=== PATIENT | male | born 1955 | race Caucasian/White ===

== ENCOUNTER 2020-12-05 17:26 | Emergency (ER) | payer SELFPAY ==
--- OUTSIDE RECORDS SUMMARY | 2020-12-05 17:28 | XMS REPORT | Continuity of Care Document ---
:1955 Author Organization [facility] t Address [address] [place] [address] Care Team Providers Name Role Phone Unavailable Unavailable Unavailable Problems This patient has no known problems. Allergies, Adverse Reactions, Alerts This patient has no known allergies or adverse reactions. Medications This patient has no known medications. Procedures This patient has no known procedures. Encounters Start End Encounter Admission Attending Care Care Encounter Source Date/Time Date/Time Type Type Clinicians Facility Department ID 2020-06-11 2020-06-11 Outpatient [facility] [id number] [facility] 00:00:00 00:00:00 [facility] Results This patient has no known results.
--- NOTE | 2020-12-05 20:20 | ER ---
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 States he thinks he tore his Achilles tendon,. PMS intact. Coronavirus screen: Client denies travel out of the [place] in the last 14 days. At this time, the client does not indicate any symptoms associated with coronavirus-19. Ebola Screen: Patient denies travel to an Ebola-affected area in the 21 days before illness onset. Initial Sepsis Screen: Does the patient meet any 2 criteria? No. Patient's initial sepsis screen is negative. Does the patient have a suspected source of infection? Yes: Bone or joint infection. Risk Assessment: Do you want to hurt yourself or someone else? Patient reports no desire to harm self or others. Onset of symptoms was December 05, 2020. 17:58 Method Of Arrival: Ambulatory ll1 17:58 Acuity: FLAVIA 3 ll1 Historical: - Allergies: 17:58 PENICILLINS; ll1 - PMHx: 17:58 None; ll1 - PSHx: 17:58 Tonsillectomy; ll1 - Immunization history:: Client reports receiving the 2nd dose of the Covid vaccine, Flu vaccine is up to date. - Social history:: Smoking status: Patient reports the use of cigarette tobacco products, denies chronic smoking, but will smoke occasionally. Vital Signs: 17:58 BP 139 / 89; Pulse 80; Resp 17; Temp 98.3; Pulse Ox 99% ; Weight 92.99 kg; Height 6 ft. ll1 0 in. (182.88 cm); Pain 2/10; 17:58 Body Mass Index 27.80 (92.99 kg, 182.88 cm) ll1 ED Course: 17:33 Patient arrived in ED. am2 17:57 Arm band placed on. ll1 18:00 Triage completed. ll1 19:58 Mor Duong PA is PHCP. [facility] 19:58 Lex Ackerman MD is Attending Physician. chino Administered Medications: No medications were administered Outcome: 20:19 Eloped from waiting room, before seeing physician iw 20:19 Patient left the ED. iw Signatures: Mor Duong PA PA jmm Williams, Irene, RN RN iw Tatiana Delgado am2 Vanessa Krause RN RN ll1
[2020-12-05 20:58] VITALS: BP 139/89; TEMP 98.3; O2SAT 99
== END 2020-12-05 20:19 | disposition left against medical advice (07) ==
LOC: ER 17:26
DX: Z02.9 Encounter for administrative examinations, unspecified (principal)
CPT/HCPCS: 99281

== ENCOUNTER 2022-02-08 05:53 | Emergency (ER) | payer OTHER ==
--- OUTSIDE RECORDS SUMMARY | 2022-02-08 05:57 | XMS REPORT | Continuity of Care Document ---
:1955 Author Organization [facility] t Address [address] [place] [address] Care Team Providers Name Role Phone Pcp, Does Not Have A Primary Care Physician Jared Attending Clinician Unavailable MYJESSESEYONLINE Attending Clinician Unavailable Jerrell BEST W Attending Clinician YANNA IRIZARRY Attending Clinician Unavailable Jorje LAL Attending Clinician Unavailable LAB47 Attending Clinician Unavailable Yanna Irizarry MD Attending Clinician Jasmin RN, T Attending Clinician Unavailable Only, Db Test Attending Clinician Unavailable Tasneem MARTELL Attending Clinician TASNEEM Attending Clinician Unavailable Doctor Unassigned, Name Attending Clinician Unavailable DANIELLE MCDERMOTT Attending Clinician Unavailable Payers Payer Name Policy Type Policy Number Effective Date Expiration Date Uli BAILEY O 7 [id number] 2020 00:00:00 Problems Condition Condition Condition Status Onset Resolution Last Treating Co mments Source Name Details Category Date Date Treatment Clinician Date Stage 3a Stage 3a Disease Active Kelse y chronic chronic 3-24 Seybold kidney kidney 00:00: disease disease 00 Hypertensi Hypertensi Disease Active K elsey ve chronic ve chronic 3-24 Se ybold kidney kidney 00:00: disease disease 00 Hyperchole Hyperchole Disease Active Kaden daren sterolemia sterolemia 3-24 Se ybold 00:00: 00 Essential Essential Disease Active Jesse biswas hypertensi hypertensi 1-08 Se ybold on on 00:00: 00 Benign Benign Disease Active Heather prostatic prostatic 1-08 Seyb old hyperplasi hyperplasi 00:00: a a 00 Allergies, Adverse Reactions, Alerts Allergy Allergy Status Severity Reaction(s) Onset Inactive Treating Comm ents Source Name Type Date Date Clinician Penicill Propensi Active Heather ins ty to 07-27 Seybold adverse 00:00: reaction 00 s NO KNOWN Drug Active [facility] ALLERGIE Class ity of [facility] Social History Social Habit Start Date Stop Date Quantity Comments Source History SDOH Heather vasquez Alcohol Std Drinks History SDOH Heather vasquez Alcohol Binge Exposure to Not sure [facility]-CoV2 [facility] (event) [place] Alcohol intake 2021-11-25 2021-11-25 .43 /d Heather nguyen 00:00:00 00:00:00 Alcohol Comment 2020-12-07 2020-12-07 social Heather silverioold 00:00:00 00:00:00 Tobacco use and 2020-08-24 2020-08-24 Smokeless tobacco Abdon harper Seybbernardo exposure 00:00:00 00:00:00 non-user History SDOH 2020-08-24 2020-08-24 5 Heather vasquez Alcohol Frequency 00:00:00 00:00:00 History of 1979-07-20 Smoker Heather James tobacco use 00:00:00 Sex Ass[birth year] [facility] y of 00:00:00 00:00:00 [facility] Smoking Status Start Date Stop Date Source Unknown if ever smoked [facility] Ex-smoker 2020-08-24 00:00:00 2020-08-24 00:00:00 Heather narayan Medications Ordered Filled Start Stop Current Ordering Indication Dosage Frequency Signature Comments Components Source Medication Medication Date Date Medication? Clinician (SIG) Name Name Aspirin 81 Yes 81mg Take 81 mg K elsey MG oral 5-09 by mouth Seybold Chewable 15:16: daily Tablet 08 Tamsulosin 0 Yes .4mg Take 1 Kelse y HCl 0.4 MG 5-09 capsule Seybol d oral 00:00: (0.4 mg Capsule 00 total) by mouth in the morning and 1 capsule (0.4 mg total) in the evening. Tamsulosin 202- No [id number] .4mg Take 1 Heather HCl 0.4 MG 4-22 05-09 capsule Seybo ld oral 00:00: 00:00 (0.4 mg Capsule 00 :00 total) by mouth in the morning and 1 capsule (0.4 mg total) in the evening. Atorvastati Yes [id number] 10mg Take 1 Heather n Calcium 3-25 tablet (10 Seyb old (Lipitor) 00:00: mg total) 10 MG oral 00 by mouth Tablet daily Aspirin 81 0 Yes 81mg Take 81 mg K elsey MG oral 3-24 by mouth Seybold Chewable 15:27: daily Tablet 49 Zoster Vac 0 Yes [id number] One dose Heather Recomb 3-24 now. Seybold Adjuvanted 00:00: Second 50 00 dose given MCG/0.5ML two to six intramuscul months ar Recon AFTER Susp first dose. Zoster Vac 0 Yes [id number] One dose Heather Recomb 3-24 now. Seybold Adjuvanted 00:00: Second 50 00 dose given MCG/0.5ML two to six intramuscul months ar Recon AFTER Susp first dose. Tamsulosin Yes [id number] .4mg Take 1 Heather HCl 0.4 MG 3-17 capsule Seybol d oral 00:00: (0.4 mg Capsule 00 total) by mouth in the morning and 1 capsule (0.4 mg total) in the evening. Aspirin 81 0 Yes 81mg Take 81 mg K elsey MG oral 1-21 by mouth Seybold Chewable 15:41: daily Tablet 51 Losartan 2021-0 Yes [id number] 25mg Take 1 Jesse sey Potassium 1-21 tablet (25 Seyb old 25 MG oral 00:00: mg total) Tablet 00 by mouth daily Losartan 0 Yes [id number] 25mg Take 1 Jesse sey Potassium 1-21 tablet (25 Seyb old 25 MG oral 00:00: mg total) Tablet 00 by mouth daily Losartan Yes [id number] 25mg Take 1 Jesse sey Potassium 1-21 tablet (25 Seyb old 25 MG oral 00:00: mg total) Tablet 00 by mouth daily Losartan 2020-07- No [id number] TAKE 1 Ke lsey Potassium 2-27 01-21 TABLET BY Seyb old 25 MG oral 00:00: 00:00 MOUTH Tablet 00 :00 EVERY DAY Tamsulosin Yes [id number] .4mg Take 1 Heather HCl 0.4 MG 3-15 capsule Seybol d oral 00:00: (0.4 mg Capsule 00 total) by mouth 2 times daily Immunizations Ordered Immunization Filled Immunization Date Status Commen ts Source Name Name Pneumococcal 2021-10-10 Completed Heather Tenorio ld Vaccine, Conjugate 00:00:00 13 Pneumococcal 2021-10-10 Completed Heather Tenorio ld Vaccine, Conjugate 00:00:00 13 Covid-19 Vaccine 2021-06-25 Completed Heather narayan (Moderna), Mrna-lnp, 00:00:00 Juan Protein, Pf, 100 Mcg/0.5ml,IM Covid-19 Vaccine 2021-06-25 Completed Heather narayan Moderna (Spikevax), 00:00:00 Mrna-lnp, Juan Protein, Pf Covid-19 Vaccine 2021-06-25 Completed Heather narayan Moderna (Spikevax), 00:00:00 Mrna-lnp, Juan Protein, Pf Vital Signs Vital Name Observation Time Observation Value Comments Source Systolic blood pressure 2021-11-25 20:14:00 116 mm[Hg] Heather Seneida Diastolic blood 2021-11-25 20:14:00 60 mm[Hg] Leroy fatou Balbirbernardo pressure Heart rate 2021-11-25 20:14:00 97 /min Heather narayan Body temperature 2021-11-25 20:14:00 36.83 Renate Minnie James Respiratory rate 2021-11-25 20:14:00 18 /min Minnie chaudhry Seneida Body height 2021-11-25 20:14:00 182.9 cm Heather Uli sylvain Body weight 2021-11-25 20:14:00 97.523 kg Heather Mcnally eybold BMI 2021-11-25 20:14:00 29.16 kg/m2 Heather S eybold Oxygen saturation in 2021-11-25 20:14:00 96 /min Heather James Arterial blood by Pulse oximetry Systolic blood pressure 2021-10-10 20:23:00 128 mm[Hg] Heather Seybold Diastolic blood 2021-10-10 20:23:00 82 mm[Hg] Kelse y Seybold pressure Heart rate 2021-10-10 20:23:00 76 /min Heather S eybold Body temperature 2021-10-10 20:23:00 36.11 Renate Minnie ey Seybold Respiratory rate 2021-10-10 20:23:00 18 /min Minnie ey Seybold Body height 2021-10-10 20:23:00 182.9 cm Heather S eybold Body weight 2021-10-10 20:23:00 98.793 kg Heather S eybold BMI 2021-10-10 20:23:00 29.54 kg/m2 Heather S eybold Systolic blood pressure 2021-08-09 21:33:00 120 mm[Hg] Heather Seybold Diastolic blood 2021-08-09 21:33:00 70 mm[Hg] Kelse y Seybold pressure Heart rate 2021-08-09 21:33:00 104 /min Heather S eybold Respiratory rate 2021-08-09 21:33:00 17 /min Minnie chaudhry Seybold Body height 2021-08-09 21:33:00 182.9 cm Heather S eybold Body weight 2021-08-09 21:33:00 101.878 kg Heather S eybold BMI 2021-08-09 21:33:00 30.46 kg/m2 Heather Mcnally eybold Oxygen saturation in 2021-08-09 21:33:00 96 /min Heather Zabalaybold Arterial blood by Pulse oximetry Procedures Procedure Date / Time Performed Performing Clinician [facility] ASSIGNMENT OF BENEFITS 2021-09-08 15:26:16 Doctor Unassigned, No [facility] Encounters Start End Encounter Admission Attending Care Care Encounter Source Date/Time Date/Time Type Type Clinicians Facility Department ID 2021-08-[address] [facility] [id number] Common 12:08:33 [facility] [address] [facility] 2021-08-[address] [facility] [id number] Common 12:07:49 [facility] [address] [facility] 2022-02-04 2022-02-04 Outpatient BEVMANPREETMarco Antonio TRAORE [id number] Heather 00:00:00 00:00:00 MD HENRIK Seybol d 2021-11-25 2021-11-25 Office MATEO Lal [id number] Heather 15:30:00 15:45:00 Visit Alessandra CARDONA [id number] Uli narayan [id number] 2021-11-08 2021-11-08 Outpatient HEATHER IRIZARRY [id number] Heather 00:00:00 00:00:00 FIRAS Seybol d 2021-11-05 2021-11-05 Outpatient HEATHER LAL [id number] Heather 00:00:00 00:00:00 ALESSANDRA Seybol d 2021-11-03 2021-11-03 Outpatient HEATHER LAL [id number] Heather 00:00:00 00:00:00 ALESSANDRA Mcgregorol penelope 2021-10-11 2021-10-11 Outpatient HEATHER IRIZARRY [id number] Heather 00:00:00 00:00:00 FIRTATE Seybol d 2021-10-10 2021-10-10 Outpatient LAB47 HEATHER TRAORE [id number] Heather 16:45:00 16:45:00 Seybol d 2021-10-10 2021-10-10 Office SIMEON Irizarry [id number] Heather 15:45:00 16:30:00 Visit Jaimie Raines [id number] Seybold [id number] 2021-09-27 2021-09-27 Outpatient HEATHER LAL [id number] Heather 00:00:00 00:00:00 ALESSANDRA negrete 2021-09-22 2021-09-22 Outpatient HEATHER LAL [id number] Heather 00:00:00 00:00:00 ALESSANDRA Mcgregorol penelope 2021-09-09 2021-09-09 Letter MARTIN Castellanos [id number] Univers 00:00:00 00:00:00 (Out) Naomy T ULICES [id number] it y of HOSPITAL [id number] Fawad as [id number] [facility] 019 [place] 2021-09-08 2021-09-08 Laboratory Only, Ang Db Test [facility] 1.2.8 40.114 [id number] Univers 09:45:00 10:00:00 Only Tasneem [facility] [id number] ity of [place] 4.2.7.2.686 Fawad as SASCHA?BLEA [id number] [address] MEDICAL OFFICE [facility]ILDING 2021-09-08 2021-09-[address] [facility] [id number] Univers 09:45:00 09:45:00 NATASHA ity of [facility] 2021-09-08 2021-09-08 Letter Doctor SALAZAR [id number] Univers 00:00:00 00:00:00 (Out) Unassigned, ULICES [id number] ity of [place] [facility] 4.2.7.2.686 Fawad as [id number] [facility] 044 [place] 2021-09-08 2021-09-08 Orders Doctor SALAZAR [id number] Univers 00:00:00 00:00:00 Only Unassigned, ULICES 350.1.13.10 ity of [place] [facility] 4.2.7.2.686 Fawad as [id number] [facility] 009 [place] 2021-08-31 2021-08-31 Outpatient LAB47 HEATHER TRAORE [id number] Heather 09:15:00 09:15:00 Seybol penelope 2021-08-12 2021-08-12 Outpatient HEATHER IRIZARRY [id number] Heather 00:00:00 00:00:00 FIRAS Seybol d 2021-08-10 2021-08-10 Outpatient LAB47 HEATHER TRAORE [id number] Heather 08:05:00 08:05:00 Seybol d 2021-08-09 2021-08-09 Office KtSIMEON ellis [id number] Heather 16:15:00 16:30:00 Visit Firas Yanna [id number] Seybold [id number] [id number] 2021-08-07 2021-08-07 Outpatient HEATHER IRIZARRY [id number] Heather 00:00:00 00:00:00 FIRAS Seybol d 2021-07-24 2021-07-24 Outpatient LANI TRAORE [id number] Heather 00:00:00 00:00:00 MD HENRIK Seybol d 2021-07-14 2021-07-14 Outpatient HEATHER IRIZARRY [id number] Heather 00:00:00 00:00:00 FIRAS Seybol d 2021-06-27 2021-06-27 Outpatient HEATHER LAL [id number] Heather 00:00:00 00:00:00 ALESSANDRA Seybol d 2021-06-22 2021-06-22 Outpatient LAB47 HEATHER TRAORE [id number] Heather 08:35:00 08:35:00 Seybol d 2021-06-20 2021-06-20 Outpatient HEATHER LAL [id number] Heather 00:00:00 00:00:00 ALESSANDRA Seybol d 2021-06-20 2021-06-20 Outpatient HEATHER IRIZARRY [id number] Heather 00:00:00 00:00:00 FIRAS Seybol d 2021-05-08 2021-05-08 Outpatient HEATHER IRIZARRY [id number] Heather 00:00:00 00:00:00 FIRAS Seybol d 2021-04-14 2021-04-14 Outpatient HEATHER MCDERMOTT [id number] Heather 00:00:00 00:00:00 AGUSTIN negrete 2020-06-11 2020-06-11 Outpatient [facility] [id number] [facility] 00:00:00 00:00:00 [facility] Results This patient has no known results.
[2022-02-08 06:37] LABS: Urine Blood 2+ (Negative); Urine Glucose Negative (Negative); Urine Protein Negative (Negative); Urine pH 5.5 (5.0-7.0)
[2022-02-08 06:50] LABS: Hematocrit 42.4 % (39.6-49.0); Lymphocytes % 11.8 % (15.3-44.8); MCV 96.6 fL (80-100); MPV 7.8 fL (7.6-11.3); RBC Red Blood Cell Count 4.39 M/uL (4.33-5.43)
[2022-02-08 06:51] LABS: Urine Bacteria None Seen /HPF (<20); Urine RBC <5 /HPF (None Seen)
[2022-02-08 07:12] LABS: Albumin 3.7 g/dL (3.4-5.0); Potassium 4.1 mmol/L (3.5-5.1)
[2022-02-08 07:16] LABS: Protein, Total 6.8 g/dL (6.4-8.2)
[2022-02-08 07:20] LABS: Bilirubin Total 0.3 mg/dL (0.2-1.0)
--- NOTE | 2022-02-08 07:47 | EDPHYS ---
Physician Documentation [facility] Name: Aramis Perry Age: 66 yrs Sex: Male : 1955 Arrival Date: 02/08/2022 Time: 05:57 Bed 5 Private MD: ED Physician Ming Coleman HPI: 02/08 06:29 This 66 yrs old Male presents to ER via Ambulatory with complaints of Urinary Problem, sp3 Low Back Pain, Abdominal Cramping, Nausea. 06:29 66-year-old male with a history of prostate hypertrophy (patient cannot tell us exact sp3 etiology) presents with approximately 12 hours of urinary retention and inability to urinate. This is not happened to him in the past. He traditionally has a slow flow and is on Flomax and sees urology in [place]. He denies fever, flank pain, upper abdominal pain, chest pain, shortness of breath, rash, or any other symptoms on ROS at this time. He denies any surgical procedures.. Historical: - Allergies: 06:08 PENICILLINS; as6 - Home Meds: 06:08 None [Active]; as6 - PMHx: 06:08 None; as6 - PSHx: 06:08 None; as6 - Immunization history:: Client reports receiving the 2nd dose of the Covid vaccine, moderna. - Social history:: Smoking status: Patient reports the use of cigarette tobacco products, denies chronic smoking, but will smoke occasionally. ROS: 06:31 Constitutional: Negative for fever, chills, and weight loss, Eyes: Negative for injury, sp3 pain, redness, and discharge, ENT: Negative for injury, pain, and discharge, Neck: Negative for injury, pain, and swelling, Cardiovascular: Negative for chest pain, palpitations, and edema, Respiratory: Negative for shortness of breath, cough, wheezing, and pleuritic chest pain, Back: Negative for injury and pain, MS/Extremity: Negative for injury and deformity, Skin: Negative for injury, rash, and discoloration, Neuro: Negative for headache, weakness, numbness, tingling, and seizure, Allergy/Immunology: Negative for hives, rash, and allergies, Endocrine: Negative for neck swelling, polydipsia, polyuria, polyphagia, and marked weight changes, Hematologic/Lymphatic: Negative for swollen nodes, abnormal bleeding, and unusual bruising. 06:31 All other systems are negative. Exam: 06:31 Constitutional: This is a well developed, well nourished patient who is awake, alert, sp3 and in no acute distress. Head/Face: Normocephalic, atraumatic. Neck: Trachea midline, no thyromegaly or masses palpated, and no cervical lymphadenopathy. Supple, full range of motion without nuchal rigidity, or vertebral point tenderness. No Meningismus. Chest/axilla: Normal chest wall appearance and motion. Nontender with no deformity. No lesions are appreciated. Cardiovascular: Regular rate and rhythm with a normal S1 and S2. No gallops, murmurs, or rubs. Normal PMI, no JVD. No pulse deficits. Respiratory: Lungs have equal breath sounds bilaterally, clear to auscultation and percussion. No rales, rhonchi or wheezes noted. No increased work of breathing, no retractions or nasal flaring. Back: No spinal tenderness. No costovertebral tenderness. Full range of motion. Male : Normal genitalia with no discharge or lesions. Skin: Warm, dry with normal turgor. Normal color with no rashes, no lesions, and no evidence of cellulitis. 06:31 Abdomen/GI: Distended bladder with pain to palpation in the lower abdomen. Also bilateral flank pain on CVA tenderness. Both of these findings were resolved after Roldan catheter insertion.. Vital Signs: 06:07 BP 129 / 60; Pulse 61; Resp 16 S; Temp 98.1(O); Pulse Ox 100% on R/A; Weight 95.25 kg as6 (R); Height 6 ft. 0 in. (182.88 cm) (R); Pain 7/10; 07:00 BP 124 / 69; Pulse 66; Resp 16; Pulse Ox 96% on R/A; em6 06:07 Body Mass Index 28.48 (95.25 kg, 182.88 cm) as6 MDM: 06:15 Patient medically screened. sp3 06:32 Data reviewed: vital signs, nurses notes. ED course: 66-year-old male with urinary sp3 retention now with full resolution status post Roldan catheter insertion. I am not suspicious for any infection or any other findings. Will discharge patient with leg bag and follow-up with his urologist in [place]. Patient is okay with the plan has no further questions. Will sign out to day physician follow-up with lab work and perform final discharge.. 09:59 Data reviewed: vital signs, nurses notes, lab test result(s). Counseling: I had a sd2 detailed discussion with the patient and/or guardian regarding: the historical points, exam findings, and any diagnostic results supporting the discharge/admit diagnosis, lab results, the need for outpatient follow up, a urologist, to return to the emergency department if symptoms worsen or persist or if there are any questions or concerns that arise at home. Transition of care: Care assumed from Ming Coleman MD. 02/08 06:17 Order name: CBC with Diff; Complete Time: 06:54 sp3 02/08 06:17 Order name: CMP; Complete Time: 07:41 sp3 02/08 06:17 Order name: Lipase; Complete Time: 07:41 sp3 02/08 06:17 Order name: Urine Microscopic Only; Complete Time: 06:54 sp3 02/08 06:17 Order name: IV Saline Lock; Complete Time: 06:43 sp3 02/08 06:37 Order name: Urine Dipstick-Ancillary; Complete Time: 06:54 EDMS 02/08 06:17 Order name: Labs collected and sent; Complete Time: 06:43 sp3 02/08 06:17 Order name: Urine Dipstick-Ancillary (obtain specimen); Complete Time: 06:43 sp3 02/08 06:17 Order name: Roldan Leg Bag; Complete Time: 06:22 sp3 Administered Medications: No medications were administered Disposition Summary: 02/08/22 07:46 Discharge Ordered Location: Home sd2 Problem: new sd2 Symptoms: are resolved sd2 Condition: Stable sd2 Diagnosis - Retention of urine, unspecified sd2 Discharge Instructions: - Discharge Summary Sheet sd2 - Indwelling Urinary Catheter Care, Adult sd2 - Acute Urinary Retention, Male sd2 Forms: - Medication Reconciliation Form sd2 - Thank You Letter sd2 - Antibiotic Education sd2 - Prescription Opioid Use sd2 Signatures: Dispatcher MedHo Ming Ponce MD MD sp3 Cruz Harper, TONO RN as6 Lauren Mora sd2
--- NOTE | 2022-02-08 07:47 | ER ---
Nurse's Notes [facility] Name: Aramis Perry Age: 66 yrs Sex: Male : 1955 Arrival Date: 02/08/2022 Time: 05:57 Bed 5 Private MD: Diagnosis: Retention of urine, unspecified Presentation: 02/08 06:02 Chief complaint: Patient states: has not urinated for the last 6 hours, hx of prostate lp1 issues; Reports this has not occurred before. 06:02 Method Of Arrival: Ambulatory lp1 06:02 Acuity: FLAVIA 3 lp1 06:07 Coronavirus screen: At this time, the client does not indicate any symptoms associated as6 with coronavirus-19. Ebola Screen: No symptoms or risks identified at this time. Initial Sepsis Screen: Does the patient meet any 2 criteria? No. Patient's initial sepsis screen is negative. Does the patient have a suspected source of infection? No. Patient's initial sepsis screen is negative. Risk Assessment: Do you want to hurt yourself or someone else? Patient reports no desire to harm self or others. Onset of symptoms was February 08, 2022 at 00:00. Historical: - Allergies: 06:08 PENICILLINS; as6 - Home Meds: 06:08 None [Active]; as6 - PMHx: 06:08 None; as6 - PSHx: 06:08 None; as6 - Immunization history:: Client reports receiving the 2nd dose of the Covid vaccine, moderna. - Social history:: Smoking status: Patient reports the use of cigarette tobacco products, denies chronic smoking, but will smoke occasionally. Screenin:10 Abuse screen: Denies threats or abuse. Denies injuries from another. Nutritional as6 screening: No deficits noted. Tuberculosis screening: No symptoms or risk factors identified. Fall Risk None identified. Assessment: 06:09 General: Appears uncomfortable, Behavior is cooperative, restless. Pain: Complains of as6 pain in suprapubic area. Neuro: Level of Consciousness is awake, alert. Respiratory: Respiratory effort is even, unlabored. GI: Abdomen is distended, Reports lower abdominal pain. : Reports inability to void, since 6 hrs. 07:23 Reassessment: Patient and/or family updated on plan of care and expected duration. Pain em6 level reassessed. patient is resting with eyes closed. even and unlabored respirations noted. call light in reach and bed on low position. 08:00 Reassessment: Patient appears in no apparent distress at this time. Patient is alert, em6 oriented x 3, equal unlabored respirations, skin warm/dry/pink. updated patient with plan of care.. 08:15 : Roldan in place to gravity drainage. jd3 08:15 Reassessment: leg bag applied to catheter. jd3 Vital Signs: 06:07 BP 129 / 60; Pulse 61; Resp 16 S; Temp 98.1(O); Pulse Ox 100% on R/A; Weight 95.25 kg as6 (R); Height 6 ft. 0 in. (182.88 cm) (R); Pain 7/10; 07:00 BP 124 / 69; Pulse 66; Resp 16; Pulse Ox 96% on R/A; em6 06:07 Body Mass Index 28.48 (95.25 kg, 182.88 cm) as6 ED Course: 05:57 Patient arrived in ED. ja2 06:02 Triage completed. lp1 06:07 Cruz Harper, RN is Primary Nurse. as6 06:09 Arm band placed on. as6 06:10 Placed in gown. Bed in low position. Call light in reach. as6 06:15 Ming Coleman MD is Attending Physician. sp3 06:21 Roldan cath inserted, using sterile technique, 16 Fr., by ut, balloon inflated, to aa9 gravity drainage, clamped. returned clear yellow urine. Patient tolerated well. 06:31 Inserted saline lock: 20 gauge in right antecubital area, using aseptic technique. aa9 Blood collected. 06:43 CBC with Diff Sent. aa9 06:43 CMP Sent. aa9 06:43 Lipase Sent. aa9 06:43 Urine Microscopic Only Sent. aa9 07:21 Primary Nurse role handed off by Cruz Harper, TONO jd3 07:21 Joseluis Mckay, TONO is Primary Nurse. jd3 08:26 No provider procedures requiring assistance completed. IV discontinued, intact, No em6 redness/swelling at site. Pressure dressing applied. Administered Medications: No medications were administered Medication: 06:10 VIS not applicable for this client. as6 Outcome: 07:46 Discharge ordered by . sd2 08:27 Discharged to home ambulatory, with significant other. em6 08:27 Condition: stable 08:27 Discharge instructions given to patient, Instructed on discharge instructions, follow up and referral plans. Demonstrated understanding of instructions, follow-up care. 08:28 Patient left the ED. em6 Signatures: Henrietta Luther, RN RN lp1 Joseluis Mckay RN RN jd3 Ming Coleman MD MD sp3 Jolanta Max Ashby, RN RN as6 Lauren Mora2 Tigist Gallardo, RN RN aa9 Raegan Dooley RN RN em6
[2022-02-08 08:37] VITALS: TEMP 98.1
[2022-02-08 08:39] VITALS: BP 124/69; O2SAT 96
== END 2022-02-08 08:28 | disposition home or self-care (01) ==
LOC: ER 05:53
DX: R33.9 Retention of urine, unspecified (principal); F17.210 Nicotine dependence, cigarettes, uncomplicated; Z88.0 Allergy status to penicillin
CPT/HCPCS: 36415; 51702; 80053; 81003; 81015; 83690; 85025; 99284

== ENCOUNTER 2022-02-09 09:31 | Emergency (ER) | payer OTHER ==
--- OUTSIDE RECORDS SUMMARY | 2022-02-09 09:34 | XMS REPORT | Continuity of Care Document ---
:1955 Author Organization [facility] t Address [address] [place] [address] Care Team Providers Name Role Phone Pcp, [...] Date Expiration Date Uli BAILEY O 7 [id number] 2020 00:00:00 Problems Condition Condition Condition Status [...] reaction 00 s NO KNOWN Drug Active [facility] ALLERGIE Class ity of S [facility] Social History Social Habit Start Date Stop Date Quantity Comments Source History SDOH Heather vasquez Alcohol Std Drinks History SDOH Heather vasquez Alcohol Binge Exposure to Not sure [facility]-CoV2 [facility] (event) [place] Alcohol intake 2021-11-25 2021-11-25 .43 /d Heather nguyen 00:00:00 00:00:00 Alcohol Comment 2020-12-07 2020-12-07 social Heather silverioold 00:00:00 00:00:00 Tobacco use and 2020-08-24 2020-08-24 Smokeless tobacco Abdon harper Seybbernardo exposure 00:00:00 00:00:00 non-user History SDOH 2020-08-24 2020-08-24 5 Heather vasquez Alcohol Frequency 00:00:00 00:00:00 History of 1979-07-20 Smoker Heather James tobacco use 00:00:00 Sex Ass[birth year] At [birth year] [facility] y of 00:00:00 00:00:00 [facility] Smoking Status Start Date Stop Date Source Unknown if ever smoked [facility] Ex-smoker 2020-08-24 00:00:00 2020-08-24 00:00:00 Heather narayan [...] total) in the evening. Tamsulosin 202- No [id number] .4mg Take 1 Heather HCl 0.4 MG 4-22 05-09 capsule Seybo ld oral 00:00: 00:00 (0.4 mg Capsule 00 :00 total) by mouth in the morning and 1 capsule (0.4 mg total) in the evening. Atorvastati Yes [id number] 10mg Take 1 Heather n Calcium 3-25 tablet (10 Seyb old (Lipitor) 00:00: mg total) 10 MG oral 00 by mouth Tablet daily Aspirin 81 0 Yes 81mg Take 81 mg K elsey MG oral 3-24 by mouth Seybold Chewable 15:27: daily Tablet 49 Zoster Vac 0 Yes [id number] One dose Heather Recomb 3-24 now. Seybold Adjuvanted 00:00: Second 50 00 dose given MCG/0.5ML two to six intramuscul months ar Recon AFTER Susp first dose. Zoster Vac 0 Yes [id number] One dose Heather Recomb 3-24 now. Seybold Adjuvanted 00:00: Second 50 00 dose given MCG/0.5ML two to six intramuscul months ar Recon AFTER Susp first dose. Tamsulosin Yes [id number] .4mg Take 1 Heather HCl 0.4 MG 3-17 capsule Seybol d oral 00:00: (0.4 mg Capsule 00 total) by mouth in the morning and 1 capsule (0.4 mg total) in the evening. Aspirin 81 0 Yes 81mg Take 81 mg K elsey MG oral 1-21 by mouth Seybold Chewable 15:41: daily Tablet 51 Losartan 2021-0 Yes [id number] 25mg Take 1 Jesse sey Potassium 1-21 tablet (25 Seyb old 25 MG oral 00:00: mg total) Tablet 00 by mouth daily Losartan 0 Yes [id number] 25mg Take 1 Jesse sey Potassium 1-21 tablet (25 Seyb old 25 MG oral 00:00: mg total) Tablet 00 by mouth daily Losartan Yes [id number] 25mg Take 1 Jesse sey Potassium 1-21 tablet (25 Seyb old 25 MG oral 00:00: mg total) Tablet 00 by mouth daily Losartan 2020-07- No [id number] TAKE 1 Ke lsey Potassium 2-27 01-21 TABLET BY Seyb old 25 MG oral 00:00: 00:00 MOUTH Tablet 00 :00 EVERY DAY Tamsulosin Yes [id number] .4mg Take 1 Heather HCl 0.4 MG [...] Procedure Date / Time Performed Performing Clinician [facility] e ASSIGNMENT OF BENEFITS 2021-09-08 15:26:16 Doctor Unassigned, No [facility] Encounters Start End Encounter Admission Attending Care Care Encounter Source Date/Time Date/Time Type Type Clinicians Facility Department ID 2021-08-14 Outpatient MURPHY Coleman [facility] [id number] Common 12:08:33 [facility] [id number] [facility] 2021-08-14 Outpatient MURPHY Coleman [facility] [id number] Common 12:07:49 [facility] [address] [facility] 2022-02-04 2022-02-04 Outpatient BEVMANPREETMarco Antonio TRAORE [id number] Heather 00:00:00 00:00:00 MD HENRIK Seybol d 2021-11-25 2021-11-25 Office MATEO Lal [id number] Heather 15:30:00 15:45:00 Visit Alessandra CARDONA [id number] Uli narayan [id number] 2021-11-08 2021-11-08 Outpatient HEATHER IRIZARRY [id number] Heather 00:00:00 00:00:00 FIRAS Seybol d 2021-11-05 2021-11-05 Outpatient HEATHER LAL [id number] Heather 00:00:00 00:00:00 ALESSANDRA Seybol d 2021-11-03 2021-11-03 Outpatient HEATHER LAL [id number] Heather 00:00:00 00:00:00 ALESSANDRA Mcgregorol penelope 2021-10-11 2021-10-11 Outpatient HEATHER IRIZARRY [id number] Heather 00:00:00 00:00:00 FIRTATE Seybol d 2021-10-10 2021-10-10 Outpatient LAB47 HEATHER TRAORE [id number] Heather 16:45:00 16:45:00 Seybol d 2021-10-10 2021-10-10 Office SIMEON Irizarry [id number] Heather 15:45:00 16:30:00 Visit Jaimie Raines [id number] Seybold [id number] 2021-09-27 2021-09-27 Outpatient HEATHER LAL [id number] Heather 00:00:00 00:00:00 ALESSANDRA negrete 2021-09-22 2021-09-22 Outpatient HEATHER LAL [id number] Heather 00:00:00 00:00:00 ALESSANDRA Mcgregorol penelope 2021-09-09 2021-09-09 Letter MARTIN Castellanos [id number] Univers 00:00:00 00:00:00 (Out) Naomy T ULICES [id number] it y of HOSPITAL [id number] Fawad as [id number] [facility] 019 [place] 2021-09-08 2021-09-08 Laboratory Only, Ang Db Test [facility] 1.2.8 [id number] Univers 09:45:00 10:00:00 Only Tasneem [facility] [id number] ity of [place] 4.2.7.2.686 Fawad as SASCHA?BLEA [id number] [address] MEDICAL OFFICE [facility]ILDING 2021-09-08 2021-09-08 Outpatient R TASNEEM [facility] [id number] Univers 09:45:00 09:45:00 NATASHA ity of [facility] 2021-09-08 2021-09-08 Letter Doctor SALAZAR [id number] [facility] 00:00:00 00:00:00 (Out) Unassigned, ULICES [id number] ity of [facility] [id number] Fawad as [id number] [facility] 044 [place] 2021-09-08 2021-09-08 Orders Doctor SALAZAR [id number] Univers 00:00:00 00:00:00 Only Unassigned, ULICES [id number] ity of [facility] 4.2.7.2.686 Fawad as [id number] [facility] 009 [place] 2021-08-31 2021-08-31 Outpatient LAB47 HEATHER TRAORE [id number] Heather 09:15:00 09:15:00 Seybol penelope 2021-08-12 2021-08-12 Outpatient HEATHER IRIZARRY [id number] Heather 00:00:00 00:00:00 FIRAS Seybol d 2021-08-10 2021-08-10 Outpatient LAB47 HEATHER TRAORE [id number] Heather 08:05:00 08:05:00 Seybol d 2021-08-09 2021-08-09 Office KtSIMEON ellis [id number] Heather 16:15:00 16:30:00 Visit Firas Yanna [id number] Seybold [id number] 2021-08-07 2021-08-07 Outpatient HEATHER IRIZARRY [id number] Heather 00:00:00 00:00:00 FIRAS Seybol d 2021-07-24 2021-07-24 Outpatient LANI TRAORE [id number] Heather 00:00:00 00:00:00 MD HENRIK Seybol d 2021-07-14 2021-07-14 Outpatient HEATHER IRIZARRY [id number] Heather 00:00:00 00:00:00 FIRAS Seybol d 2021-06-27 2021-06-27 Outpatient HEATHER LAL [id number] Heather 00:00:00 00:00:00 ALESSANDRA Seybol d 2021-06-22 2021-06-22 Outpatient LAB47 HEATHER TRAORE [id number] Heather 08:35:00 08:35:00 Seybol d 2021-06-20 2021-06-20 Outpatient HEATHER LAL [id number] Heather 00:00:00 00:00:00 ALESSANDRA Seybol d 2021-06-20 2021-06-20 Outpatient HEATHER IRIZARRY [id number] Heather 00:00:00 00:00:00 FIRAS Seybol d 2021-05-08 2021-05-08 Outpatient HEATHER IRIZARRY [id number] Heather 00:00:00 00:00:00 FIRAS Seybol d 2021-04-14 2021-04-14 Outpatient HEATHER MCDERMOTT [id number] Heather 00:00:00 00:00:00 AGUSTIN negrete 2020-06-11 2020-06-11 [facility] [id number] [facility] 00:00:00 00:00:00 [facility] Results This patient has no known results.
--- NOTE | 2022-02-09 10:02 | ER ---
Nurse's Notes [facility] Name: Aramis Perry Age: 66 yrs Sex: Male : 1955 Arrival Date: 02/09/2022 Time: 09:32 Bed 12 Private MD: Diagnosis: Other mechanical complication of urinary (indwelling) catheter Presentation: 02/09 09:46 Chief complaint: Patient states: he was seen here in the ED Thursday02/07/22 and had a ap3 irving placed. patient presents to the ED today requesting for the catheter to be removed. Coronavirus screen: At this time, the client does not indicate any symptoms associated with coronavirus-19. Ebola Screen: No symptoms or risks identified at this time. Initial Sepsis Screen: Does the patient meet any 2 criteria? No. Patient's initial sepsis screen is negative. Does the patient have a suspected source of infection? No. Patient's initial sepsis screen is negative. Risk Assessment: Do you want to hurt yourself or someone else? Patient reports no desire to harm self or others. Onset of symptoms was February 07, 2022. 09:46 Method Of Arrival: Ambulatory ap3 09:46 Acuity: FLAVIA 4 ap3 Triage Assessment: 09:48 General: Appears in no apparent distress. Behavior is calm, cooperative, appropriate ap3 for age. Pain: Denies pain. Neuro: Level of Consciousness is awake, alert, obeys commands, Oriented to person, place, time, situation. Cardiovascular: Patient's skin is warm and dry. Respiratory: Airway is patent Respiratory effort is even, unlabored. : Irving in place to gravity drainage. Historical: - Allergies: 09:47 PENICILLINS; ap3 - PMHx: 09:47 None; ap3 - Immunization history:: Client reports receiving the 2nd dose of the Covid vaccine. - Social history:: Smoking status: Patient reports the use of cigarette tobacco products, denies chronic smoking, but will smoke occasionally, Patient uses alcohol, occasionally. Screenin:49 Abuse screen: Denies threats or abuse. Nutritional screening: No deficits noted. ap3 Tuberculosis screening: No symptoms or risk factors identified. 09:49 Fall Risk None identified. ap3 Vital Signs: 09:46 BP 157 / 89; Pulse 87; Resp 19; Temp 98.8; Pulse Ox 100% ; Weight 90.72 kg; Height 6 ap3 ft. (182.88 cm); 09:46 Body Mass Index 27.12 (90.72 kg, 182.88 cm) ap3 ED Course: 09:32 Patient arrived in ED. as 09:41 Lauren Mora is Attending Physician. sd2 09:47 Triage completed. ap3 09:49 Arm band placed on left wrist. ap3 09:49 Patient has correct armband on for positive identification. Adult w/ patient. ap3 10:05 Irving cath removed intact, balloon deflated. mb7 10:06 Christopher Olmstead, RN is Primary Nurse. jl7 10:06 No provider procedures requiring assistance completed. Patient did not have IV access jl7 during this emergency room visit. Administered Medications: No medications were administered Medication: 10:06 VIS not applicable for this client. jl7 Outcome: 10:02 Discharge ordered by . sd2 10:06 Discharged to home ambulatory. jl7 10:06 Condition: stable 10:06 Discharge instructions given to patient, Instructed on discharge instructions, follow up and referral plans. Demonstrated understanding of instructions, follow-up care. 10:07 Patient left the ED. jl7 Signatures: Virginia Dooley as Christopher Olmstead, RN RN jl7 Tatiana Cornell RN RN 3 Casie Cantu mb7 Lauren Mora MD MD sd2
--- NOTE | 2022-02-09 10:02 | EDPHYS ---
Physician Documentation [facility] Name: Aramis Perry Age: 66 yrs Sex: Male : 1955 Arrival Date: 02/09/2022 Time: 09:32 Bed 12 Private MD: ED Physician Lauren Mora HPI: 02/09 09:55 This 66 yrs old Male presents to ER via Ambulatory with complaints of Problem With sd2 Urinary Catheter. 09:55 66 yo M seen here yesterday morning for urinary retention and had Roldan catheter placed sd2 which he went home with leg bag. Returns today as he would like to have it removed. Reports it has become irritative and that this has been an ongoing issue and he feels as if he would be able to urinate if he had it removed. He denies fevers, abdominal pain or any other acute symptoms. He reports working on follow up with Urology at [facility] in [place] for this upcoming week.. Historical: - Allergies: 09:47 PENICILLINS; ap3 - PMHx: 09:47 None; ap3 - Immunization history:: Client reports receiving the 2nd dose of the Covid vaccine. - Social history:: Smoking status: Patient reports the use of cigarette tobacco products, denies chronic smoking, but will smoke occasionally, Patient uses alcohol, occasionally. ROS: 09:55 Constitutional: Negative for fever, chills, and weight loss, Cardiovascular: Negative sd2 for chest pain, palpitations, and edema, Respiratory: Negative for shortness of breath, cough, wheezing. Abdomen/GI: Negative for abdominal pain, nausea, vomiting, diarrhea. : Negative for injury, discharge, and swelling. Positive for discomfort at catheter site. MS/Extremity: Negative for injury and deformity, Skin: Negative for injury, rash, and discoloration, Neuro: Negative for headache, numbness and tingling. Hematologic/Lymphatic: Negative for swollen nodes, abnormal bleeding, and unusual bruising. Exam: 09:55 Constitutional: This is a well developed, well nourished patient who is awake, alert, sd2 and in no acute distress. Head/Face: Normocephalic, atraumatic. Abdomen/GI: Soft, non-tender, with normal bowel sounds. No guarding or rebound. No evidence of tenderness throughout. Male : Roldan catheter in place draining yellow urine in leg bag Skin: Warm, dry with normal turgor. Normal color with no rashes, no lesions, and no evidence of cellulitis. MS/ Extremity: Pulses equal, no cyanosis. Neurovascular intact. Full, normal range of motion. Ambulatory without difficulty. Psych: Awake, alert, with orientation to person, place and time. Behavior, mood, and affect are within normal limits. Vital Signs: 09:46 BP 157 / 89; Pulse 87; Resp 19; Temp 98.8; Pulse Ox 100% ; Weight 90.72 kg; Height 6 ap3 ft. (182.88 cm); 09:46 Body Mass Index 27.12 (90.72 kg, 182.88 cm) ap3 MDM: 09:53 Patient medically screened. sd2 09:55 Differential Diagnosis catheter malfunction, urinary retention, doubt UTI, catheter sd2 irritation among others. Data reviewed: vital signs, nurses notes, old medical records. Counseling: I had a detailed discussion with the patient and/or guardian regarding: the historical points, exam findings, and any diagnostic results supporting the discharge/admit diagnosis, the need for outpatient follow up, to return to the emergency department if symptoms worsen or persist or if there are any questions or concerns that arise at home, Discussed that best course of action is removal with his urologist at their office this week as significant risk for repeat episode of what occurred previously. Pt reports he is willing to accept the risk of needing repeat Roldan catheter placement and would not like to wait until he voids after having catheter removed. Reports he will just return if he has any issues with voiding at home. . Medical screen evaluation completed. EMTALA emergency medical condition absent. 10:01 ED course: Removal of Roldan catheter performed by RN without complication.. sd2 02/09 09:54 Order name: Andrea. Order: Remove Roldan catheter; Complete Time: 10:01 sd2 Administered Medications: No medications were administered Disposition Summary: 02/09/22 10:02 Discharge Ordered Location: Home sd2 Problem: an ongoing problem sd2 Symptoms: have improved sd2 Condition: Stable sd2 Diagnosis - Other mechanical complication of urinary (indwelling) catheter sd2 Followup: sd2 - With: Private Physician - When: - Reason: Recheck today's complaints, Continuance of care, Re-evaluation by your physician Followup: sd2 - With: Emergency Department - When: As needed - Reason: Discharge Instructions: - Discharge Summary Sheet sd2 - Acute Urinary Retention, Male sd2 Forms: - Medication Reconciliation Form sd2 - Thank You Letter sd2 - Antibiotic Education sd2 - Prescription Opioid Use sd2 Signatures: Tatiana Cornell RN RN ap3 Lauren Mora MD MD sd2
[2022-02-09 10:15] VITALS: BP 157/89; TEMP 98.8; O2SAT 100
== END 2022-02-09 10:07 | disposition home or self-care (01) ==
LOC: ER 09:31
DX: T83.098A Other mechanical complication of other urinary catheter, initial encounter (principal); Z88.0 Allergy status to penicillin
CPT/HCPCS: 99281